=== PATIENT | male | born 1940 | race Caucasian/White ===

== ENCOUNTER 2020-05-19 13:33 | Emergency (ER) | payer BC ==
[~2020-05-19] VITALS: Ht 185.4 cm; Wt 91.6 kg
[2020-05-19 13:47] VITALS: BP 170/85; Ht 185.4 cm; Wt 91.6 kg
== END 2020-05-19 15:24 | disposition home or self-care (01) ==
LOC: ED 13:33
DX: T17.990A Other foreign object in respiratory tract, part unspecified in causing asphyxiation, initial encounter (principal); I10 Essential (primary) hypertension; E11.9 Type 2 diabetes mellitus without complications; Z88.0 Allergy status to penicillin; Z88.2 Allergy status to sulfonamides; X58.XXXA Exposure to other specified factors, initial encounter; Y93.89 Activity, other specified; Y92.89 Other specified places as the place of occurrence of the external cause; Y99.8 Other external cause status
CPT/HCPCS: Q0092

== ENCOUNTER 2020-07-05 15:02 | Emergency (ER) | payer BC ==
[~2020-07-05] VITALS: Ht 185.4 cm; Wt 83.5 kg
[2020-07-05 15:17] VITALS: BP 122/72; Ht 185.4 cm; Wt 83.5 kg
== END 2020-07-05 17:30 | disposition home or self-care (01) ==
LOC: ED 15:02
DX: T17.208A Unspecified foreign body in pharynx causing other injury, initial encounter (principal); E11.9 Type 2 diabetes mellitus without complications; I10 Essential (primary) hypertension; Z88.0 Allergy status to penicillin; Z88.2 Allergy status to sulfonamides; Z98.890 Other specified postprocedural states; W45.8XXA Other foreign body or object entering through skin, initial encounter; Y93.89 Activity, other specified; Y92.89 Other specified places as the place of occurrence of the external cause; Y99.8 Other external cause status